=== PATIENT | male | born 1970 ===

== ENCOUNTER 2021-12-14 13:30 | Emergency (ER) | payer OTHER ==
[~2021-12-14 13:30] MED LIST: BENTYL10 MG PO; CLARITIN10 MG PO; PROTONIX 40MG T40 MG PO
[2021-12-14] MEDS ORDERED: LISINOPRIL20 MG PO (14:03)
[2021-12-14] MEDS ORDERED: PANTOPRAZOLE SO40 MG PO (14:04)
[2021-12-14] MEDS ORDERED: CETIRIZINE HCL10 MG PO (14:06)
[2021-12-14] MEDS ORDERED: PREDNISONE50 MG PO (14:14)
== END 2021-12-14 15:20 | disposition home or self-care (01) ==
LOC: FER 13:30
DX: S60.362A Insect bite (nonvenomous) of left thumb, initial encounter (principal); I10 Essential (primary) hypertension; Z87.891 Personal history of nicotine dependence; W57.XXXA Bitten or stung by nonvenomous insect and other nonvenomous arthropods, initial encounter; Z28.310 Unvaccinated for COVID-19
CPT/HCPCS: 99281; J7512